=== PATIENT | female | born 1955 | race Caucasian/White ===

== ENCOUNTER → 2016-11-07 | Day surgery (SDC) | payer MEDICARE, SELFPAY ==
[~2016-11-07] MED LIST: CALCIUM500 MG PO; COUMADIN5 MG PO; LANOXIN250 MCG PO; NEURONTIN300 MG PO; ONCE DAILY1 EACH PO; PRILOSEC40 MG PO; SALINE NOSE SPR45 ML NS; VITAMIN C100 MG PO
== END | disposition home or self-care (01) ==
LOC: SDCH 07:55
DX: Z12.11 Encounter for screening for malignant neoplasm of colon (principal); K57.30 Diverticulosis of large intestine without perforation or abscess without bleeding; M19.90 Unspecified osteoarthritis, unspecified site; Z90.710 Acquired absence of both cervix and uterus; Z79.899 Other long term (current) drug therapy; Z88.0 Allergy status to penicillin; Z88.6 Allergy status to analgesic agent; Z88.2 Allergy status to sulfonamides; Z96.643 Presence of artificial hip joint, bilateral
CPT/HCPCS: 43239; G0121; J2704